=== PATIENT | male | born 1980 | race Caucasian/White ===

== ENCOUNTER 2020-11-03 20:12 | Emergency (ER) | payer OTHER ==
[~2020-11-03] VITALS: Ht 182.9 cm; Wt 88.5 kg
[~2020-11-03 20:12] MED LIST: CETI10 PO; DIPH50 PO
[2020-11-03] MEDS ORDERED: PRED20 PO (21:30)
== END 2020-11-03 21:58 | disposition home or self-care (01) ==
LOC: ER 20:12
DX: L25.5 Unspecified contact dermatitis due to plants, except food (principal)
CPT/HCPCS: 99282; J7512